=== PATIENT | female | born 1960 | race Caucasian/White ===

== ENCOUNTER 2017-08-25 08:47 | Emergency (ER) | payer OTHER ==
[2017-08-25 10:57] LABS: ADD UMIC YES; UR ASCORBIC ACID NEGATIVE (NEGATIVE); UR BILIRUBIN (Dip) NEGATIVE (NEGATIVE); UR BLOOD (Dip) 1+ mg/dL (NEGATIVE); UR CLARITY CLEAR (CLEAR); UR COLOR YELLOW (YELLOW); UR GLUCOSE (Dip) NEGATIVE (NEGATIVE); UR KETONES (Dip) NEGATIVE (NEGATIVE); UR LEUKOCYTE ESTERASE (Dip) NEGATIVE Leu/ul (NEGATIVE); UR NITRITE (Dip) NEGATIVE (NEGATIVE); UR RBC 2 /HPF (0-5); UR SPECIFIC GRAVITY (Dip) 1.013 (1.003-1.030); UR TOTAL PROTEIN (Dip) 2+ mg/dl (NEGATIVE); UR UROBILINOGEN (Dip) NEGATIVE (NEGATIVE); UR WBC 0 /HPF (0-5)
== END 2017-08-25 11:55 | disposition home or self-care (01) ==
LOC: FTE 08:47
DX: J20.9 Acute bronchitis, unspecified (principal); I10 Essential (primary) hypertension; E11.9 Type 2 diabetes mellitus without complications; Z79.82 Long term (current) use of aspirin; Z79.84 Long term (current) use of oral hypoglycemic drugs
CPT/HCPCS: 71045; 81001; 87400; 99284-25

== ENCOUNTER 2018-02-20 17:43 | Emergency (ER) | payer OTHER | END 2018-02-20 18:48 | disposition home or self-care (01) | LOC: FTE 18:48 | DX: H10.33 Unspecified acute conjunctivitis, bilateral (principal); I10 Essential (primary) hypertension; E11.9 Type 2 diabetes mellitus without complications; Z79.82 Long term (current) use of aspirin; Z79.84 Long term (current) use of oral hypoglycemic drugs | CPT/HCPCS: 99283-25; Z7502 ==

== ENCOUNTER 2018-06-13 13:22 | Emergency (ER) | payer OTHER ==
[2018-06-13] MEDS: ONDANSETRON (ODT) 4 MG TAB ODT (14:08)
== END 2018-06-13 14:38 | disposition home or self-care (01) ==
LOC: FTE 14:38
DX: J03.90 Acute tonsillitis, unspecified (principal); I10 Essential (primary) hypertension; E11.9 Type 2 diabetes mellitus without complications; Z79.82 Long term (current) use of aspirin; Z79.84 Long term (current) use of oral hypoglycemic drugs
CPT/HCPCS: 99283; Z7502

== ENCOUNTER 2018-09-15 09:01 | Day surgery (SDC) | payer OTHER ==
[~2018-09-15 09:01] MED LIST: PROPOFOL 200 MG INJ
[2018-09-15] MEDS ORDERED: PROPOFOL 60 ML (09:50)
[2018-09-15] MEDS ORDERED: LIDOCAINE 2% (SDV) 5 ML INJ (09:51)
[2018-09-15] MEDS ORDERED: ONDANSETRON 4 MG INJ IV (10:00)
[2018-09-15] MEDS ORDERED: METOCLOPRAMIDE 10 MG INJ IV (10:00)
[2018-09-15] MEDS ORDERED: ALBUTEROL 0.083% (NEB) 2.5 MG/3 ML AMP HHN (10:00)
[2018-09-15] MEDS ORDERED: LABETALOL HCL 20MG INJ IV (10:00)
[2018-09-15] MEDS ORDERED: hydrALAzine 20 MG INJ IV (10:00)
[2018-09-15] MEDS ORDERED: FENTAnyl 50 MCG/ML VIAL IV (10:00)
[2018-09-15] MEDS ORDERED: EPHEDrine SULFATE 50 MG/5 ML SYG IV (10:00)
== END 2018-09-15 12:13 | disposition home or self-care (01) ==
LOC: GIL 09:01
DX: Z12.11 Encounter for screening for malignant neoplasm of colon (principal); K64.8 Other hemorrhoids; K64.4 Residual hemorrhoidal skin tags; D12.4 Benign neoplasm of descending colon; D12.2 Benign neoplasm of ascending colon; K29.00 Acute gastritis without bleeding; K29.50 Unspecified chronic gastritis without bleeding; I10 Essential (primary) hypertension; E11.9 Type 2 diabetes mellitus without complications; Z79.82 Long term (current) use of aspirin; Z79.84 Long term (current) use of oral hypoglycemic drugs
CPT/HCPCS: 43239; 82962; 88305; 88312; 88313

== ENCOUNTER 2019-01-27 16:25 | Emergency (ER) | payer OTHER ==
[2019-01-27] MEDS: KETOROLAC 30 MG INJ IM (17:07)
[2019-01-27] MEDS: DEXAMETHASONE 10 MG/ML 1 ML INJ IM (17:07)
== END 2019-01-27 17:50 | disposition home or self-care (01) ==
LOC: FTE 16:25
DX: M25.571 Pain in right ankle and joints of right foot (principal); E11.9 Type 2 diabetes mellitus without complications; I10 Essential (primary) hypertension; M25.572 Pain in left ankle and joints of left foot; M25.562 Pain in left knee; M25.561 Pain in right knee; M54.2 Cervicalgia; M54.5 Low back pain; Z79.82 Long term (current) use of aspirin; Z79.84 Long term (current) use of oral hypoglycemic drugs
CPT/HCPCS: 96372; 99284-25